=== PATIENT | male | born 1990 | race Two or more races ===

== ENCOUNTER → 2018-11-16 | Emergency (ER) | payer MEDICAID | END | disposition left against medical advice (07) | LOC: ER 20:23 | DX: T78.40XA Allergy, unspecified, initial encounter (principal); Z53.21 Procedure and treatment not carried out due to patient leaving prior to being seen by health care provider; X58.XXXA Exposure to other specified factors, initial encounter ==

== ENCOUNTER 2021-10-06 13:36 | Emergency (ER) | payer MEDICAID ==
[~2021-10-06] VITALS: Ht 177.8 cm; Wt 122.9 kg
[2021-10-06 13:53] VITALS: BP 150/98
[2021-10-06] MEDS ORDERED: cefTRIAXone SOD 1,000 MG VL IM ONE (14:45)
[2021-10-06] MEDS ORDERED: DexAMETHasone SOD PHOS 10MG/1ML VIAL INJ IM ONE (14:45)
[2021-10-06] MEDS ORDERED: METH4PAK PO (15:00)
[2021-10-06] MEDS ORDERED: PENI500T2 PO (15:00)
== END 2021-10-06 15:08 | disposition home or self-care (01) ==
LOC: ER 13:36
DX: U07.1 COVID-19 (principal); J03.90 Acute tonsillitis, unspecified; Z88.1 Allergy status to other antibiotic agents
CPT/HCPCS: 96372; 99284; J0696; J1100

== ENCOUNTER 2022-06-09 03:20 | Emergency (ER) | payer MEDICAID ==
[~2022-06-09] VITALS: Ht 177.8 cm; Wt 126.9 kg
[~2022-06-09 03:20] MED LIST: METH4PAK PO; PENI500T2 PO
[2022-06-09 04:00] LABS: Basophils # (auto) 0 10 ^3/uL (0-0.2); Basophils % (auto) 0.2 % (0.0-2.0); Eosinophils # (auto) 0 10 ^3/uL (0-0.8); Eosinophils % (auto) 0.3 % (0.0-7.0); Hematocrit 46.5 % (41.0-53.0); Hemoglobin 15.6 g/dL (13.5-17.5); Lymphocytes # (auto) 2.5 10 ^3/uL (0.4-5.4); Lymphocytes % (auto) 18.1 % (10.0-50.0); Mean Corpuscular Hemoglobin 28.8 pg (28.0-32.0); Mean Corpuscular Hgb Conc. 33.5 g/dL (32.0-36.0); Monocytes # (auto) 0.7 10 ^3/uL (0-1.3); Neutrophils # (auto) 10.6 10 ^3/uL (1.6-8.6); Neutrophils % (auto) 76.4 % (37.0-80.0); Nucleated Red Blood Cells % 0.1 %; Red Blood Cells 5.41 10^6/uL (4.5-5.90); Red Cell Distribution Width 13.5 % (11.8-14.3); White Blood Cell 13.9 10^3/uL (4.4-10.8)
[2022-06-09 04:11] LABS: Albumin 4.3 g/dL (3.4-5.0); BUN/Creatinine Ratio 8.9; Calcium 9.2 mg/dL (8.5-10.1); Potassium 4.1 mmol/L (3.5-5.1)
[2022-06-09 04:14] LABS: Bilirubin, Total 1.3 mg/dL (0.2-1.0); Total Protein 7.9 g/dL (6.4-8.2)
[2022-06-09] MEDS ORDERED: CIPR-173 PO (07:25)
[2022-06-09] MEDS ORDERED: METR500T PO (07:25)
[2022-06-09 07:54] VITALS: BP 145/84
[2022-06-09] MEDS ORDERED: ONDANSETRON ODT 4 MG TAB PO ONE (08:00)
== END 2022-06-09 08:08 | disposition home or self-care (01) ==
LOC: ER 03:20
DX: K57.90 Diverticulosis of intestine, part unspecified, without perforation or abscess without bleeding (principal); Z88.1 Allergy status to other antibiotic agents
CPT/HCPCS: 36415; 71045; 74176; 80053; 83690; 85025; 99285; Q0162